=== PATIENT | male | born 1960 | race Caucasian/White ===

== ENCOUNTER 2023-02-07 21:35 | Observation (INO) | payer BC ==
[2023-02-07] MEDS ORDERED: SODIUM CHLORIDE 0.9% 500 ML 500 ML IV STA (22:45)
[2023-02-07] MEDS ORDERED: HYDROmorphone 1 MG/ML 1 ML SYRINGE IVP STA (22:45)
[2023-02-07] MEDS ORDERED: SODIUM CHLORIDE 0.9% 1,000 ML IV STA (22:45)
--- NOTE | 2023-02-07 23:00 | ED ---
Recheck HPI - General Chief Complaint: Back Pain/Injury Stated Complaint: Back Pain Time Seen by Provider: 02/07/23 21:39 Source: patient, RN notes reviewed, old records reviewed Mode of arrival: EMS Limitations: no limitations - History of Present Illness Initial Comments: This is a 62-year-old male DF for evaluation patient Dese for evaluation ER pain neck pain pain left shoulder pain pain down his left arm. Patient was in a different emergency department prior to arrival here with similar complaints of pain. The pain has been persistent and getting progressively worse. MD Complaint: other (Recheck for left shoulder left neck left arm pain) -: week(s) Returns Today for: persistent/worsening pain related to initial visit Symptoms Since Prior Visit: worsening pain Context: planned re-check Associated Symptoms: none Treatments Prior to Arrival: Given Pain Meds on - Related Data Allergies Allergy/AdvReac Type Severity Reaction Status Date / Time Penicillins Allergy Unknown Verified 02/07/23 21:38 Review of Systems ROS Statement: Those systems with pertinent positive or pertinent negative responses have been documented in the HPI. ROS Other: All systems not noted in ROS Statement are negative. Past Medical History Past Medical History: Musculoskeletal Disorder Additional Past Medical History / Comment(s): degenerative dic disease History of Any Multi-Drug Resistant Organisms: None Reported Past Surgical History: Back Surgery Additional Past Surgical History / Comment(s): Aortic Aneurysm Past Psychological History: No Psychological Hx Reported Smoking Status: Former smoker Past Alcohol Use History: Rare Past Drug Use History: Marijuana General Exam Limitations: no limitations General appearance: alert, in no apparent distress Head exam: Present: atraumatic, normocephalic, normal inspection Eye exam: Present: normal appearance, PERRL, EOMI. Absent: scleral icterus, conjunctival injection, periorbital swelling ENT exam: Present: normal exam, mucous membranes moist Neck exam: Present: normal inspection. Absent: tenderness, meningismus, lymphadenopathy Respiratory exam: Present: normal lung sounds bilaterally. Absent: respiratory distress, wheezes, rales, rhonchi, stridor Cardiovascular Exam: Present: regular rate, normal rhythm, normal heart sounds. Absent: systolic murmur, diastolic murmur, rubs, gallop, clicks GI/Abdominal exam: Present: soft, normal bowel sounds. Absent: distended, tenderness, guarding, rebound, rigid Extremities exam: Present: normal inspection, full ROM, normal capillary refill. Absent: tenderness, pedal edema, joint swelling, calf tenderness Back exam: Present: normal inspection Neurological exam: Present: alert, oriented X3, CN II-XII intact Psychiatric exam: Present: normal affect, normal mood Skin exam: Present: warm, dry, intact, normal color. Absent: rash Course Vital Signs 02/07/23 02/08/23 21:41 01:48 Temperature 97.8 F Pulse Rate 61 56 L Respiratory 22 16 Rate Blood Pressure 179/94 118/68 O2 Sat by Pulse 98 97 Oximetry - Reevaluation(s) Reevaluation #1: 02/08/23 02:21 Medical record is reviewed Reevaluation #2: 02/08/23 02:21 Patient's pain is intractable here in the ER with persistent nausea and vomiting Reevaluation #3: 02/08/23 02:21 Request is made from [facility] for patient's emergency department records Reevaluation #4: 02/08/23 02:22 Was pt. sent in by a medical professional or institution? @ -no Did you speak to anyone other than the patient for history? @ -no Did you review nursing and triage notes? @ -agree Were old charts reviewed? @ -yes Differential Diagnosis? @ -prior EKG interpreted by me (3pts min.)? @ -yes X-rays interpreted by me (1pt min.)? @ -yes CT interpreted by me (1pt min.)? @ -no U/S interpreted by me (1pt. min.)? @ -no What testing was considered but not performed? (CT, X-rays, U/S, labs)? Why? @ -no What meds were considered but not given? Why? @ -no Did you discuss the management of the patient with other professionals? @ -no Did you reconcile home meds? @ -no Was smoking cessation discussed for >3mins.? @ -no Was critical care preformed (if so, how long)? @ -no Were there social determinants of health that impacted care today? How? (Homelessness, low income, unemployed, alcoholism, drug addiction, trans portation, low edu. Level, literacy, decrease access to med. care, [facility], rehab)? @ -no Was there de-escalation of care discussed even if they declined? (Discuss DNR or withdrawal of care, Hospice)? @ -no What co-morbidities impacted this encounter? (DM, HTN, Smoking, COPD, CAD, Cancer, CVA, Hep., AIDS, mental health diagnosis, sleep apnea, morbid obesity)? @ -none Was patient admitted / discharged? @ - Undiagnosed new problem with uncertain prognosis? @ -no Drug Therapy requiring intensive monitoring for toxicity (Heparin, Nitro, Insulin, Cardizem)? @ -no Were any procedures done? @ -no Diagnosis/symptom? @ - Acute, or Chronic, or Acute on Chronic? @ -acute Uncomplicated (without systemic symptoms) or Complicated (systemic symptoms)? @ -complicated Side effects of treatment? @ -no Exacerbation, Progression, or Severe Exacerbation] @ -no Poses a threat to life or bodily function? @ -yes Medical Decision Making - Medical Decision Making 62 male to the emergency department for intractable paresthesia, cervical radiculopathy and left arm pain. Patient did have significant imaging done [facility] which is requested. Patient will be admitted for pain control and orthopedic evaluation - Lab Data Result diagrams: 02/07/23 22:52 02/07/23 22:52 Lab Results 02/07/23 02/07/23 Range/Units 22:52 22:52 WBC 11.8 H (3.8-10.6) k/uL RBC 4.81 (4.30-5.90) m/uL Hgb 14.6 (13.0-17.5) gm/dL Hct 43.7 (39.0-53.0) % MCV 90.8 (80.0-100.0) fL MCH 30.4 (25.0-35.0) pg MCHC 33.5 (31.0-37.0) g/dL RDW 12.9 (11.5-15.5) % Plt Count 232 (150-450) k/uL MPV 7.7 Neutrophils % 81 % Lymphocytes % 13 % Monocytes % 4 % Eosinophils % 1 % Basophils % 0 % Neutrophils # 9.6 H (1.3-7.7) k/uL Lymphocytes # 1.5 (1.0-4.8) k/uL Monocytes # 0.5 (0-1.0) k/uL Eosinophils # 0.1 (0-0.7) k/uL Basophils # 0.0 (0-0.2) k/uL Sodium 138 (137-145) mmol/L Potassium 3.9 (3.5-5.1) mmol/L Chloride 106 (98-107) mmol/L Carbon Dioxide 22 (22-30) mmol/L Anion Gap 10 mmol/L BUN 14 (9-20) mg/dL Creatinine 0.85 (0.66-1.25) mg/dL Est GFR (CKD-EPI)AfAm >90 (>60 ml/min/1.73 sqM) Est GFR (CKD-EPI)NonAf >90 (>60 ml/min/1.73 sqM) Glucose 132 H (74-99) mg/dL Calcium 9.6 (8.4-10.2) mg/dL Total Bilirubin 0.8 (0.2-1.3) mg/dL AST 30 (17-59) U/L ALT 23 (4-49) U/L Alkaline Phosphatase 74 (38-126) U/L C-Reactive Protein 1.1 H (<1.0) mg/dL Total Protein 7.2 (6.3-8.2) g/dL Albumin 4.6 (3.5-5.0) g/dL Lipase 47 (23-300) U/L Disposition Clinical Impression: Left arm pain, Neuropathy, Cervical radiculopathy Disposition: ADMITTED IP TO THIS HOSP Condition: Fair Is patient prescribed a controlled substance at d/c from ED?: No Time of Disposition: 01:00
[2023-02-07 23:02] LABS: Basophils % (A) 0 %; Eosinophils # (A) 0.1 k/uL (0-0.7); Eosinophils % (A) 1 %; HCT 43.7 % (39.0-53.0); HGB 14.6 gm/dL (13.0-17.5); Lymphocytes # (A) 1.5 k/uL (1.0-4.8); Lymphocytes % (A) 13 %; MCH 30.4 pg (25.0-35.0); MCHC 33.5 g/dL (31.0-37.0); MCV 90.8 fL (80.0-100.0); Mean Platelet Volume 7.7; Monocytes # (A) 0.5 k/uL (0-1.0); Monocytes % (A) 4 %; Neutrophils # (A) 9.6 k/uL (1.3-7.7); Neutrophils % (A) 81 %; Platelet Count 232 k/uL (150-450); RBC 4.81 m/uL (4.30-5.90); RDW 12.9 % (11.5-15.5); WBC 11.8 k/uL (3.8-10.6)
[2023-02-07 23:26] LABS: ALT 23 U/L (4-49); AST 30 U/L (17-59); African American GFR (CKD) >90 (>60 ml/min/1.73 sqM); Albumin 4.6 g/dL (3.5-5.0); Alkaline Phosphatase 74 U/L (38-126); Anion Gap 10 mmol/L; Blood Urea Nitrogen 14 mg/dL (9-20); C Reactive Protein 1.1 mg/dL (<1.0); Calcium 9.6 mg/dL (8.4-10.2); Carbon Dioxide 22 mmol/L (22-30); Chloride 106 mmol/L (98-107); Glucose 132 mg/dL (74-99); Lipase 47 U/L (23-300); Non-African American GFR(CKD) >90 (>60 ml/min/1.73 sqM); Potassium 3.9 mmol/L (3.5-5.1); Sodium 138 mmol/L (137-145); Total Bilirubin 0.8 mg/dL (0.2-1.3); Total Protein 7.2 g/dL (6.3-8.2)
[2023-02-08] MEDS ORDERED: ONDANSETRON 4 MG/2 ML VIAL IVP STA (00:57)
[2023-02-08] MEDS ORDERED: NALOXONE 0.4 MG/ML 1 ML VIAL IV PRN (01:10)
[2023-02-08] MEDS ORDERED: PROCHLORPERAZINE INJ 10 MG/2 ML VIAL IVP STA (01:24)
[2023-02-08] MEDS: SODIUM CHLORIDE 0.9% 1,000 ML IV SCH ×2 (01:37→15:34)
[2023-02-08] MEDS: HYDROmorphone 1 MG/ML 1 ML SYRINGE IVP PRN ×3 (07:25→22:05)
[2023-02-08 07:59] LABS: Appearance,Urine Clear (Clear); Bilirubin,Urine Negative (Negative); Blood,Urine Negative (Negative); Color,Urine Yellow; Glucose,Urine (UA) Trace (Negative); Ketones,Urine 2+ (Negative); Leukocyte Esterase,Urine Negative (Negative); Mucus,Urine Rare /hpf; Nitrite,Urine Negative (Negative); Protein,Urine 1+ (Negative); RBC,Urine 5 /hpf (0-5); Squamous Epithelial Cell,Urine <1 /hpf (0-4); Urobilinogen,Urine <2.0 mg/dL (<2.0); WBC,Urine 1 /hpf (0-5)
[2023-02-08 08:31] LABS: Specific Gravity,Urine >1.050 (1.001-1.035)
--- NOTE | 2023-02-08 10:51 | P.CNOR ---
History of Present Illness - [facility] Consult date: 02/08/23 History of present illness: This is a 62-year-old male who is admitted for left arm pain. Orthopedics is consulted for further evaluation. Patient is seen and evaluated at bedside today with Dr. Fermin Scott. Patient states that he has chronic pain in his neck that radiates down the left arm. Patient states that he went to [facility] emergency room on 02/07/2023 for the pain and received pain medication. Patient states that he was discharged home and presented to [facility] emergency room once the pain medicine wore off. Patient states that he has numbness and tingling in the left upper extremity. Patient states that he had a CT scan of his neck along with a Doppler ultrasound for the left upper extremity done at [facility] on 02/07/2023. Patient states that he has also been e valuated at an urgent care for this problem but never followed up with orthopedics as he was directed. Patient's past medical history is significant for degenerative disc disease and history of aortic aneurysm with open heart surgery. Patient denies any fever/chills, weakness, abdominal pain, shortness of breath or chest pain. Past Medical History Past Medical History: Musculoskeletal Disorder Additional Past Medical History / Comment(s): degenerative disc disease History of Any Multi-Drug Resistant Organisms: None Reported Past Surgical History: Appendectomy, Back Surgery Additional Past Surgical History / Comment(s): Aortic Aneurysm, disc in neck, open heart, ear surgery Past Anesthesia/Blood Transfusion Reactions: No Reported Reaction Past Psychological History: No Psychological Hx Reported Smoking Status: Former smoker Past Alcohol Use History: Rare Past Drug Use History: Marijuana Medications and Allergies Home Medications Medication Instructions Recorded Confirmed Type Albuterol Sulfate [Albuterol 2 puff PO RT-Q6H PRN 02/08/23 02/08/23 History Sulfate Hfa] Allergies Allergy/AdvReac Type Severity Reaction Status Date / Time Penicillins Allergy Unknown Verified 02/08/23 10:33 Physical Examination On exam patient is resting comfortably in bed in no acute distress. Patient is alert and oriented 3. Left upper extremity: Patient moves the left upper extremity freely and without pain or difficulty. Left upper extremity is warm and well perfused. Neur ovascular status and circulatory status are intact. There is no swelling, erythema or ecchymosis. Skin is intact. Patient has good range of motion of the head and neck without pain or difficulty. Results - Labs Labs: Abnormal Lab Results - Last 24 Hours (Table) 02/07/23 02/07/23 02/08/23 Range/Units 22:52 22:52 07: WBC 11.8 H (3.8-10.6) k/uL Neutrophils # 9.6 H (1.3-7.7) k/uL Glucose 132 H (74-99) mg/dL C-Reactive Protein 1.1 H (<1.0) mg/dL Ur Specific [place] >1.050 H (1.001-1.035) Urine Protein 1+ H (Negative) Urine Glucose (UA) Trace H (Negative) Urine Ketones 2+ H (Negative) Urine Mucus Rare H (None) /hpf H & H 02/07/23 Range/Units 22:52 Hgb 14.6 (13.0-17.5) gm/dL Hct 43.7 (39.0-53.0) % Result Diagrams: 02/07/23 22:52 02/07/23 22:52 Assessment and Plan (1) Left arm pain Current Visit: Yes Status: Acute Code(s): M79.602 - PAIN IN LEFT ARM SNOMED Code(s): 134299568 Plan: Patient reports that he had a CT scan of his neck along with a Doppler ultrasound of the left upper extremity done at [facility] on 02/07/2023. These records have not been transferred yet. Further recommendations pending transfer of imaging results from [facility].
[2023-02-08] MEDS: ONDANSETRON 4 MG/2 ML VIAL IVP PRN (12:07)
--- NOTE | 2023-02-08 13:51 | P.HPIM ---
History of Present Illness H&P Date: 02/08/23 History of present illness; patient is 62-year-old gentleman with no significant past medical history presented to the ER because of neck pain. Patient was seen at different hospital with similar complaints and has significant imaging done. Patient stated that this neck pain is gradually worsening, this is radiating down his left shoulder and his left arm. Patient also complaining of numbness of left upper extremity. Because of the symptoms, patient came to the ER. Patient was admitted to medicine service REVIEW OF SYSTEMS: CONSTITUTIONAL: No fever, no malaise, no fatigue. HEENT: No recent visual problems or hearing problems. Denied any sore throat. CARDIOVASCULAR: No chest pain, orthopnea, PND, no palpitations, no syncope. PULMONARY: No shortness of breath, no cough, no hemoptysis. GASTROINTESTINAL: No diarrhea, no nausea, no vomiting, no abdominal pain. NEUROLOGICAL: No headaches, no weakness, no numbness. HEMATOLOGICAL: Denies any bleeding or petechiae. GENITOURINARY: Denies any burning micturition, frequency, or urgency. MUSCULOSKELETAL/RHEUMATOLOGICAL: As mentioned in HPI ENDOCRINE: Denies any polyuria or polydipsia. The rest of the 14-point review of systems is negative. PHYSICAL EXAMINATION: GENERAL: The patient is alert and oriented x3, not in any acute distress. Well developed, well nourished. HEENT: Pupils are round and equally reacting to light. EOMI. No scleral icterus. No conjunctival pallor. Normocephalic, atraumatic. No pharyngeal erythema. No thyromegaly. CARDIOVASCULAR: S1 and S2 present. No murmurs, rubs, or gallops. PULMONARY: Chest is clear to auscultation, no wheezing or crackles. ABDOMEN: Soft, nontender, nondistended, normoactive bowel sounds. No palpable organomegaly. MUSCULOSKELETAL: No joint swelling or deformity. EXTREMITIES: No cyanosis, clubbing, or pedal edema. NEUROLOGICAL: Gross neurological examination did not reveal any focal deficits. SKIN: No rashes. Assessment and plan Neck pain Cervical Radiculopathy Monitor vital signs Monitor CBC Monitor CMP Ordered troponin Ordered EKG Ordered d-dimer Continue pain control Imaging requested from [facility] on board DVT prophylaxis: Past Medical History Past Medical History: Musculoskeletal Disorder Additional Past Medical History / Comment(s): degenerative disc disease History of Any Multi-Drug Resistant Organisms: None Reported Past Surgical History: Appendectomy, Back Surgery Additional Past Surgical History / Comment(s): Aortic Aneurysm, disc in neck, open heart, ear surgery Past Anesthesia/Blood Transfusion Reactions: No Reported Reaction Past Psychological History: No Psychological Hx Reported Smoking Status: Former smoker Past Alcohol Use History: Rare Past Drug Use History: Marijuana Medications and Allergies Home Medications Medication Instructions Recorded Confirmed Type Albuterol Sulfate [Albuterol 2 puff PO RT-Q6H PRN 02/08/23 02/08/23 History Sulfate Hfa] Allergies Allergy/AdvReac Type Severity Reaction Status Date / Time Penicillins Allergy Unknown Verified 02/08/23 10:33 Physical Exam Vitals: Vital Signs Temp Pulse Pulse Resp BP BP Pulse Ox 02/08/23 07:00 98.1 F 72 14 130/75 95 02/08/23 02:42 97.4 F L 63 18 131/76 93 L 02/08/23 01:48 56 L 16 118/68 97 02/07/23 21:41 97.8 F 61 22 179/94 98 Intake and Output 02/07/23 02/08/23 02/08/23 22:59 06:59 14:59 Other: Weight 78.925 kg 78.925 kg Results CBC & Chem 7: 02/07/23 22:52 02/07/23 22:52 Labs: Abnormal Lab Results - Last 24 Hours (Table) 02/07/23 02/07/23 02/08/23 Range/Units 22:52 22:52 07: WBC 11.8 H (3.8-10.6) k/uL Neutrophils # 9.6 H (1.3-7.7) k/uL Glucose 132 H (74-99) mg/dL C-Reactive Protein 1.1 H (<1.0) mg/dL Ur Specific [place] >1.050 H (1.001-1.035) Urine Protein 1+ H (Negative) Urine Glucose (UA) Trace H (Negative) Urine Ketones 2+ H (Negative) Urine Mucus Rare H (None) /hpf Thrombosis Risk Factor Assmnt - Choose All That Apply Any of the Below Risk Factors Present?: No Other Risk Factors: Yes Each Risk Factor Represents 2 Points: Age 61-74 years Other congenital or acquired thrombophilia - If yes, enter type in comment: No Thrombosis Risk Factor Assessment Total Risk Factor Score: 2 Thrombosis Risk Factor Assessment Level: Low Risk
[2023-02-08] MEDS: GABAPENTIN 100 MG CAP PO SCH ×2 (15:33→21:06)
[2023-02-08] MEDS: HYDROcodone/APAP 5-325MG 1 EACH TAB PO PRN (23:11)
[2023-02-09] MEDS: HYDROmorphone 1 MG/ML 1 ML SYRINGE IVP PRN ×2 (04:51→11:28)
[2023-02-09] MEDS: SODIUM CHLORIDE 0.9% 1,000 ML IV SCH (04:52)
[2023-02-09] MEDS: HYDROcodone/APAP 5-325MG 1 EACH TAB PO PRN ×3 (06:06→23:19)
[2023-02-09] MEDS: ONDANSETRON 4 MG/2 ML VIAL IVP PRN (08:08)
[2023-02-09] MEDS ORDERED: methylPREDNISolone SOD SUCCI 125 MG/2 ML VIAL IV STA (11:15)
[2023-02-09] MEDS: GABAPENTIN 100 MG CAP PO SCH ×3 (11:33→21:33)
--- NOTE | 2023-02-09 12:47 | P.PN ---
Subjective Progress Note Date: 02/09/23 This is a 62-year-old male who is admitted for left arm pain. Patient is seen and evaluated at bedside today. Patient states that he continues to have numbness and shooting pain down the left arm. Patient denies any weakness in the left upper extremity. Patient states that he had a cervical fusion in the 80s, but these curent symptoms started months ago. Patient states that he is unable to have MRIs due to metal in his ear. Patient denies any new complaints today. Objective - Vital Signs Vital signs: Vital Signs Temp 98.0 F 02/09/23 07:00 Pulse 50 L 02/09/23 08:00 Resp 15 02/09/23 08:00 BP 151/76 02/09/23 07:00 Pulse Ox 97 02/09/23 07:00 FiO2 Intake & Output 02/08/23 02/09/23 02/09/23 18:59 06:59 18:59 Intake Total 200 118 Balance 200 118 Intake: Oral 200 118 Other: Voiding Method Toilet Toilet # Voids 3 0 # Bowel Movements 1 - Exam On exam patient is resting comfortably in bed leaning on the left arm in no acute distress. Patient is alert and oriented 3. There is no swelling, erythema or ecchymosis over the neck or shoulder. Patient has full active range of motion of the left upper extremity with some discomfort. Sensation intact to the left upper extremity. There is some difference in sensation over the ulnar aspect of the left hand. Left upper extremity is warm and well perfused. Patient has full range of motion of the left wrist and hand. Neurovascular status and circulatory status are intact. - Labs CBC & Chem 7: 02/07/23 22:52 02/07/23 22:52 Assessment and Plan (1) Left arm pain Current Visit: Yes Status: Acute Code(s): M79.602 - PAIN IN LEFT ARM SNOMED Code(s): 058665784 (2) Cervical radiculopathy Current Visit: Yes Status: Acute Code(s): M54.12 - RADICULOPATHY, CERVICAL REGION SNOMED Code(s): 10863681 Plan: An ER note from [facility] is reviewed and contained CT report of the C- spine dated 01/09/2023 [facility] reveals fusion of the C5 6 vertebral bodies with ventral plate and screws along with grade 1 anterolisthesis of C7 on T1, degenerative disc disease noted at all levels. No significant evidence of significant disc bulge, herniation, central canal stenosis or neural foraminal narrowing. Patient will be started on Solu-Medrol for symptom control. Patient would possibly benefit from pain management. There is no surgical intervention planned. Patient may follow up as an outpatient.
[2023-02-09] MEDS ORDERED: HYDROmorphone 1 MG/ML 1 ML SYRINGE IVP PRN (13:29)
--- NOTE | 2023-02-09 13:29 | P.PN ---
Subjective Progress Note Date: 02/09/23 patient is 62-year-old gentleman with no significant past medical history presented to the ER because of neck pain. Patient was seen at different hospital with similar complaints and has significant imaging done. Patient stated that this neck pain is gradually worsening, this is radiating down his left shoulder and his left arm. Patient also complaining of numbness of left upper extremity. Because of the symptoms, patient came to the ER. Patient was admitted to medicine service 02/09. Patient seen and examined. States pain has slightly improved. Orthopedics has discussed with patient, they don't recommend any surgical intervention, recommending pain control. Patient not very happy with their suggestion, states he still in pain. REVIEW OF SYSTEMS: CONSTITUTIONAL: No fever, no malaise,. CARDIOVASCULAR: No chest pain, no palpitations, no syncope. PULMONARY: No shortness of breath, no cough, GASTROINTESTINAL: No diarrhea, no nausea, no vomiting, no abdominal pain. NEUROLOGICAL: No headaches, no weakness, PHYSICAL EXAMINATION: GENERAL: The patient is alert and oriented x3, not in any acute distress. Well developed, well nourished. HEENT: Pupils are round and equally reacting to light. EOMI. No scleral icterus. No conjunctival pallor. Normocephalic, atraumatic. No pharyngeal erythema. No thyromegaly. CARDIOVASCULAR: S1 and S2 present. No murmurs, rubs, or gallops. PULMONARY: Chest is clear to auscultation, no wheezing or crackles. ABDOMEN: Soft, nontender, nondistended, normoactive bowel sounds. No palpable organomegaly. MUSCULOSKELETAL: No joint swelling or deformity. EXTREMITIES: No cyanosis, clubbing, or pedal edema. NEUROLOGICAL: Gross neurological examination did not reveal any focal deficits. SKIN: No rashes. Assessment and plan Neck pain Cervical Radiculopathy Monitor vital signs Monitor CBC Monitor CMP Continue Neurontin Continue when necessary pain medications with IV Dilaudid and oral [facility] started IV steroids, recommend discharging on steroid taper [place] [facility] pain management DVT prophylaxis: Objective - Vital Signs Vital signs: Vital Signs Temp 98.0 F 02/09/23 07:00 Pulse 50 L 02/09/23 08:00 Resp 15 02/09/23 08:00 BP 151/76 02/09/23 07:00 Pulse Ox 97 02/09/23 07:00 FiO2 Intake & Output 02/08/23 02/09/23 02/09/23 18:59 06:59 18:59 Intake Total 200 118 Balance 200 118 Intake: Oral 200 118 Other: Voiding Method Toilet Toilet # Voids 3 0 # Bowel Movements 1 - Labs CBC & Chem 7: 02/07/23 22:52 02/07/23 22:52
[2023-02-09 15:00] VITALS: BMI 25.7
[2023-02-10] MEDS: HYDROcodone/APAP 5-325MG 1 EACH TAB PO PRN ×3 (08:23→22:11)
[2023-02-10] MEDS: methylPREDNISolone SOD SUCCI 125 MG/2 ML VIAL IV SCH (08:24)
[2023-02-10] MEDS: GABAPENTIN 100 MG CAP PO SCH (08:24)
--- NOTE | 2023-02-10 13:32 | P.PN ---
Subjective Progress Note Date: 02/10/23 patient is 62-year-old gentleman with no significant past medical history presented to the ER because of neck pain. Patient was seen at different hospital with similar complaints and has significant imaging done. Patient stated that this neck pain is gradually worsening, this is radiating down his left shoulder and his left arm. Patient also complaining of numbness of left upper extremity. Because of the symptoms, patient came to the ER. Patient was admitted to medicine service 02/09. Patient seen and examined. States pain has slightly improved. Orthopedics has discussed with patient, they don't recommend any surgical intervention, recommending pain control. Patient not very happy with their suggestion, states he still in pain. 02/10. Patient seen and examined. Patient still states that his pain is not controlled. Wants something can be changed weekly, explained to him that he needs to follow-up outpatient with pain management. REVIEW OF SYSTEMS: CONSTITUTIONAL: No fever, no malaise,. CARDIOVASCULAR: No chest pain, no palpitations, no syncope. PULMONARY: No shortness of breath, no cough, GASTROINTESTINAL: No diarrhea, no nausea, no vomiting, no abdominal pain. NEUROLOGICAL: No headaches, no weakness, PHYSICAL EXAMINATION: GENERAL: The patient is alert and oriented x3, not in any acute distress. Well developed, well nourished. HEENT: Pupils are round and equally reacting to light. EOMI. No scleral icterus. No conjunctival pallor. Normocephalic, atraumatic. No pharyngeal erythema. No thyromegaly. CARDIOVASCULAR: S1 and S2 present. No murmurs, rubs, or gallops. PULMONARY: Chest is clear to auscultation, no wheezing or crackles. ABDOMEN: Soft, nontender, nondistended, normoactive bowel sounds. No palpable organomegaly. MUSCULOSKELETAL: No joint swelling or deformity. EXTREMITIES: No cyanosis, clubbing, or pedal edema. NEUROLOGICAL: Gross neurological examination did not reveal any focal deficits. SKIN: No rashes. Assessment and plan Neck pain Cervical Radiculopathy Monitor vital signs Monitor CBC Monitor CMP Continue Neurontin, dose increased to 300 mg 3 times a day Continue when necessary pain medications with IV Dilaudid and oral [facility] started IV steroids, recommend discharging on steroid taper [employer] pain management DVT prophylaxis: Objective - Vital Signs Vital signs: Vital Signs Temp 98 F 02/10/23 07:00 Pulse 54 L 02/10/23 07:00 Resp 16 02/10/23 07:00 BP 144/72 02/10/23 07:00 Pulse Ox 97 02/10/23 07:00 FiO2 Intake & Output 02/09/23 02/10/23 02/10/23 18:59 06:59 18:59 Intake Total 536 150 Balance 536 150 Weight 78.925 kg Intake: Oral 536 150 Other: Voiding Method Toilet # Voids 3 2 # Bowel Movements 1 - Labs CBC & Chem 7: 02/07/23 22:52 02/07/23 22:52
[2023-02-10] MEDS: GABAPENTIN 300 MG CAP PO SCH ×2 (16:33→20:30)
[2023-02-11] MEDS: HYDROcodone/APAP 5-325MG 1 EACH TAB PO PRN ×3 (05:22→17:22)
[2023-02-11] MEDS: methylPREDNISolone SOD SUCCI 125 MG/2 ML VIAL IV SCH (08:02)
[2023-02-11] MEDS: GABAPENTIN 300 MG CAP PO SCH ×3 (08:02→21:12)
--- NOTE | 2023-02-11 15:17 | P.PN ---
Subjective Progress Note Date: 02/11/23 patient is 62-year-old gentleman with no significant past medical history presented to the ER because of neck pain. Patient was seen at different hospital with similar complaints and has significant imaging done. Patient stated that this neck pain is gradually worsening, this is radiating down his left shoulder and his left arm. Patient also complaining of numbness of left upper extremity. Because of the symptoms, patient came to the ER. Patient was admitted to medicine service 02/09. Patient seen and examined. States pain has slightly improved. Orthopedics has discussed with patient, they don't recommend any surgical intervention, recommending pain control. Patient not very happy with their suggestion, states he still in pain. 02/10. Patient seen and examined. Patient still states that his pain is not controlled. Wants something can be changed weekly, explained to him that he needs to follow-up outpatient with pain management. 02/11. Patient seen and examined. States his neck pain is still not under control. Pain management team is supposed to see this patient this afternoon. REVIEW OF SYSTEMS: CONSTITUTIONAL: No fever, no malaise,. CARDIOVASCULAR: No chest pain, no palpitations, no syncope. PULMONARY: No shortness of breath, no cough, GASTROINTESTINAL: No diarrhea, no nausea, no vomiting, no abdominal pain. NEUROLOGICAL: No headaches, no weakness, PHYSICAL EXAMINATION: GENERAL: The patient is alert and oriented x3, not in any acute distress. Well developed, well nourished. HEENT: Pupils are round and equally reacting to light. EOMI. No scleral icterus. No conjunctival pallor. Normocephalic, atraumatic. No pharyngeal erythema. No thyromegaly. CARDIOVASCULAR: S1 and S2 present. No murmurs, rubs, or gallops. PULMONARY: Chest is clear to auscultation, no wheezing or crackles. ABDOMEN: Soft, nontender, nondistended, normoactive bowel sounds. No palpable organomegaly. MUSCULOSKELETAL: No joint swelling or deformity. EXTREMITIES: No cyanosis, clubbing, or pedal edema. NEUROLOGICAL: Gross neurological examination did not reveal any focal deficits. SKIN: No rashes. Assessment and plan Neck pain Cervical Radiculopathy Monitor vital signs Monitor CBC Monitor CMP Continue Neurontin, 300 mg 3 times a day Continue when necessary pain medications with IV Dilaudid and oral [facility] started IV steroids, recommend discharging on steroid taper Consult pain management DVT prophylaxis: Objective - Vital Signs Vital signs: Vital Signs Temp 98.1 F 02/11/23 14:24 Pulse 65 02/11/23 14:24 Resp 15 02/11/23 14:24 BP 144/77 02/11/23 14:24 Pulse Ox 98 02/11/23 14:24 FiO2 Intake & Output 02/10/23 02/11/23 02/11/23 18:59 06:59 18:59 Intake Total 808 80 Balance 808 80 Intake: Oral 808 80 Other: Voiding Method Toilet # Voids 5 2 1 # Bowel Movements 1 - Labs CBC & Chem 7: 02/07/23 22:52 02/07/23 22:52
--- NOTE | 2023-02-11 16:02 | P.PAINPG ---
Objective - Vital Signs Vital signs: Vital Signs Temp 97.6 F 02/11/23 07:30 Pulse 61 02/11/23 07:30 Resp 17 02/11/23 07:30 BP 167/87 02/11/23 07:30 Pulse Ox 99 02/11/23 00:40 FiO2 Intake & Output 02/10/23 02/11/23 02/11/23 18:59 06:59 18:59 Intake Total 808 Balance 808 Intake: Oral 808 Other: Voiding Method Toilet # Voids 5 2 # Bowel Movements 1 - Labs CBC & Chem 7: 02/07/23 22:52 02/07/23 22:52 PQRS Measure Charge Sheet Comment: HISTORY OF PRESENT ILLNESS: 62 yr old inpatient male w at side as a referral from Dr Ceferino Jane presents today w severe and chronic neck pain secondary to DDD, spondylosis and facet arthropathy without myelopathy for evaluation. Pt states pain level is provoked at 9 /10 in intensity, constant, localized in the mid to lower cervical spine, sharp, achy in character w shooting pain towards the L shoulder. Pain is provoked by rotation, lifting, laying on his R side. Pain is alleviated by medications (IV Dilaudid, Oral Olmitz), repositioning and rest. Obtained records from [facility] which consisted of CT Angiograms of the cervical spine and chest. PMH: OA, Asthma PSH: AA, Open Heart Surgery, Ear Surgery, Appendectomy, Lumbar Surgery SH: Former tobacco user, No ETOH abuse, Cannabis use FH: Non contributory All: See list Meds: See list REVIEW OF ORGAN SYSTEMS: CONSTITUTIONAL: No fevers or chills. No recent weight loss. NEUROLOGICAL: + numbness and tingling along the distal extremities. No seizure disorders or headaches. MUSCULOSKELETAL: + pain PSYCHIATRIC: Denies current depression or suicidal t houghts. Physical Examinations : Constitutional : Cooperative , not in acute distress . Neurologic : Cranial nerve II to XII intact. No focal neurological deficits. Psychiatric : alert & oriented x 3. Matching mood & appropriate affect. Judgment & insight intact. Musculoskeletal : Cervical Spine Motor strength in the deltoid and biceps: Normal right side. Normal Left side Motor strength biceps and the wrist extensors: Normal right side . Normal left side Motor strength in the triceps muscle: Normal right side. Normal left side Deep tendon reflexes: Normal at the bi ceps. Normal at Brachioradialis. Normal at triceps Vertebral body tenderness to deep palpation over C6 Cervical facet loading test: positive bilaterally Spurling test: positive bilaterally over C6-C7- T1 Neck distraction test: positive bilaterally Cherri sign: positive bilaterally Lumbar spine Motor strength lower extremities ,thigh and legs 5/5 Right side , 5/5 Left side Deep tendon reflexes : Normal Knee Jerk. Normal Ankle Jerk Vertebral body tenderness over Paulino Test positive Lumbar facet Loading Test: positive Right / positive Left Range of motion of the lumbar spine Flexion 30 degrees, extension 10 degrees Straight Leg Raise test: Left/ Right positive at degree Larissa test: positive right / positive left. Severe tenderness over the Sacroiliac joint on the Right / Left sides Gaenslen test: positive bilaterally Seated flexion test: positive bilaterally. Sacral spine : Severe tenderness over the Sacroiliac joint: right side / left side Range of motion: Flexion of the lumbar spine <60 degrees Range of motion: Extension of the lumbar spine <20 degrees Gaenslen's Test positive Anup's Test positive Larissa test: positive right side / left side Thigh Thrust Test Sacral Thrust Test Imaging: CT Angiogram Cervical and Chest completed at [facility] from 02/07/[address] of the cervical spine provided. Assessment/ Plan : Cervical DDD Recommendation of follow up at the Pain Clinic. Pt will manage pain w Olmitz 7.5/325mg #18 NR upon discharge. Use, side effects, adverse reactions and safe storage discussed. All questions answered. I have spent greater than 30 minutes on patient care today. Dr Irizarry was available by phone for the evaluation of this patient. The time was used to review the medical records including relevant urine studies and Prescription history (MAPs), review of the available imaging, evaluation and examination of the patient, coordination of care with the medical staff and if applicable referring physicians, as well as creation of the medical record - Pain Location Left Arm Non-Pharmacological Interventions: Darkened Room, Environmental Control, Position/Reposition, Reduce Environmental Stimuli Pharmacological Interventions: Discuss Pain Med Options, PRN Medication Pain Comment: see MAR documentation PQRS Narrative: Blood Pressure [Left Arm] 167/87 Blood Pressure [Right Arm] 165/86 Blood Pressure 118/68 Pain Intensity [Left Arm] 6 Pain Intensity 4 Pain Scale Used Numeric (1 - 10) Scale Used Numeric (1 - 10) Home Medications: Ambulatory Orders Albuterol Sulfate [Albuterol Sulfate Hfa] 2 puff PO RT-Q6H PRN 02/08/23 Controlled Substance Measures - Controlled Substance Measures Is patient prescribed a controlled substance at discharge?: Yes When asked, does pt state using other controlled substances?: Yes If prescribed controlled substance>3 days was MAPS reviewed?: Prescribed <3 Days If Rx opioid, was Start Talking consent form obtained?: Yes Was information provided regarding opioid addiction?: Yes
--- NOTE | 2023-02-11 18:56 | CT ---
EXAMINATION TYPE: CT CervThoracic spine wo con DATE OF EXAM: 02/11/2023 COMPARISON: None HISTORY: Left arm numbness and pain. CT DLP: 1877.20 mGycm Automated exposure control for dose reduction was used. TECHNIQUE: Axial CT images of the cervicothoracic spine without intravenous contrast. Coronal and sag ittal reformatted images were also reviewed. FINDINGS: Fracture: None. Osseous structures: Postsurgical changes from anterior cervical fusion involving C5-C6. Hardware appe ars intact with appropriate alignment. This creates streak artifact which limits evaluation. Multilev el degenerative disc disease changes with endplate spurring and disc osteophyte complex's. Multilevel facet arthropathy. Midline sternal wires. Vertebral alignment: Within normal limits. Spinal canal/Neural Foramina: Broad-based disc bulge without significant effacement of anterior theca l sac at C2-C3 posterior disc ossify complex at C3-C4 with at least mild central canal stenosis. Post erior disc osteophyte complex at the C5-C6 with a least mild spinal canal stenosis. Posterior disc os teophyte complex at C6-C7 with at least mild spinal canal stenosis. Mild to moderate bilateral neural foraminal stenosis at C3-C4 and C4-C5. Neck soft tissues: Prevertebral soft tissues are within normal limits. Other: The airway is patent. Biapical pleural-parenchymal scarring with paraseptal emphysematous lynn ges. Posterior dependent atelectasis. Regions of bronchiectasis within the posterior aspect of the ri ght lower lobe. Additional regions of suspected honeycombing within the anterior aspects of both uppe r lobes. Left renal cyst measuring up to 2.5 cm. IMPRESSION: 1. NO ACUTE FRACTURE. 2. MILD TO MODERATE MULTILEVEL DEGENERATIVE DISC DISEASE WITH POSTSURGICAL CHANGES FROM ANTERIOR FUS ION OF C5-C6. 3. COPD CHANGES WITH SUGGESTED INTERSTITIAL LUNG DISEASE.
[2023-02-12] MEDS: HYDROcodone/APAP 5-325MG 1 EACH TAB PO PRN ×2 (01:45→08:12)
[2023-02-12 07:31] VITALS: RESP 16; TEMP 98
[2023-02-12] MEDS: methylPREDNISolone SOD SUCCI 125 MG/2 ML VIAL IV SCH (08:12)
[2023-02-12] MEDS: GABAPENTIN 300 MG CAP PO SCH (08:12)
[2023-02-12] MEDS ORDERED: HYDROcodone/APAP 10-325MG 1 EACH TAB PO PRN (13:09)
[2023-02-12] MEDS ORDERED: LACTATED RINGERS 1,000 ML IV SCH (13:30)
[2023-02-12] MEDS ORDERED: IOPAMIDOL-370 125ML BTL ONE (13:59)
[2023-02-12] MEDS ORDERED: DEXAMETHASONE SOD PHOSPHATE 10 MG/ML 1 ML VIAL ONE (13:59)
--- NOTE | 2023-02-12 14:13 | P.PCN ---
Date of Procedure: 02/12/23 Description of Procedure: Pre- and Post-operative Diagnosis: Cervical radiculopathy, radiating to left upper extremity Procedure: C7-T1 Inter-Laminar Cervical Epidural Steroid Injection under biplanar fluoroscopy Surgeon: Robbin Richards Anesthesia: Local: 1% Lidocaine, IV sedation : None Complications: None. Estimated blood loss: None Specimens removed: None Fluoroscopic image: saved to electronic medical records. Indications for Procedure: The patient has been suffering from neck pain and pain radiating to the left side upper extremity causing numbness tingling sensation over fourth and fifth fingers. Inadequate pain control with pharmacologic regimen. An inter-laminar approach cervical epidural steroid injection was scheduled for the patient. Procedure and Findings: The patient was seen and examined in the holding area. The written informed consent was obtained after explaining the risks, benefits, alternatives of the procedure to the patient. The patient was brought to the procedure room and was placed in the prone position on the operating table. A pillow was placed under the upper chest. Standard anesthesia monitoring was done through out the procedure. Timeout was completed. The skin preparation was done with ChloraPrep 1 and draping was done in usual sterile fashion. Sterile technique was observed throughout the procedure. Under fluoroscopic guidance, the C7-T1 inter-laminar space was identified. 3 ml of 1% Lidocaine was injected with a 25 gauge needle to achieve adequate local anesthesia of the skin and subcutaneous tissue. A 20 gauge, 3.5 inch Tuohy type epidural needle was placed and gradually advanced up to the epidural space using loss of resistance technique and fluoroscopic guidance. Lateral, oblique fluoroscopic views confirm the needle position. No paresthesia was noted. A negative aspiration was confirmed and then 1 ml of Isovue-200 was injected. A good dye spread was seen in the epidural space and it was negative for any intrathecal, intraneural or intravascular spread. A total of 6 ml solution containing 20 mg Dexamethasone, and 4 ml preservative-free Normal Saline was injected slowly with intermittent aspiration. The needle was removed intact, area was cleaned and bandage was applied. Disposition : The patient tolerated the procedure very well. The patient was transferred to the recovery room and remained stable until transferred to inpatient room. The patient was given detailed discharge instructions for bleeding, infection, increased pain at the injection site, and was advised to seek immediate medical attention should significant side effects develop. The patient will be followed up with our Pain Clinic within 2 weeks for follow-up visit.
--- NOTE | 2023-02-12 14:20 | FL ---
Intraoperative/procedural fluoroscopic services were provided for cervical epidural steroid injection . Total fluoroscopy time is 8.3 seconds with a total of 3 submitted images to PACS. Total DAP 0.76860 mGym2. Please see the operative note for further details.
[2023-02-12 15:27] VITALS: BP 175/93; PULSE 61
--- NOTE | 2023-02-16 09:40 | P.DS ---
Providers Date of admission: 02/08/23 01:10 Expected date of discharge: 02/12/23 Attending physician: Kam Jones Primary care physician: Clyde Serrano [facility] Course: Final diagnosis Neck pain Cervical Radiculopathy GI prophylaxis DVT prophylaxis Full code Discharge disposition Patient is being discharged in a stable condition with guarded prognosis to home. Patient will follow-up with Dr. Carpio in the outpatient setting upon discharge. Patient is to continue with pain management as scheduled. Total time taken is greater than 35 minutes. Hospital course This is a 62-year-old male who was recently admitted with severe upper back pain and neck pain being closely monitored for pain management. Patient was evaluated by pain management underwent cervical testing and had epidural injection. Patient was continued on IV steroids and evaluated by orthopedics with no plans for surgical intervention. Patient has been cleared by consultations and will follow-up outpatient as scheduled appointment on the . Please refer to other consultation notes for further HPI. Currently no reports of chest pain, shortness of breath, or palpitations. Patient is afebrile. No reports of nausea or vomiting and patient is tolerating diet. Patient will be discharged home today. Physical exam: Gen: This is a 62-year-old male who is awake, alert and oriented 3, thin built, well-developed HEENT: Head is atraumatic, normocephalic. Pupils equal, round. Sclerae is anicteric. NECK: Supple. No JVD. No lymphadenopathy. No thyromegaly. LUNGS: Clear to auscultation. No wheezes or rhonchi. No intercostal retractions. HEART: Regular rate and rhythm. No murmur. ABDOMEN: Soft. Bowel sounds are present. No masses. No tenderness. EXTREMITIES: No pedal edema. No calf tenderness. NEUROLOGICAL: Patient is awake, alert and oriented x3. Cranial nerves 2 through 12 are grossly intact. Please refer to medication reconciliation sheet for a list of medications. The impression and plan of care has been dictated by Toña Oropeza, Nurse Practitioner as directed. Dr. Guillermo MD I have performed a history and examination and MDM of this patient, discussed the same with the dictator, and agree with the dictator's assessment and plan as written ,documented as a scribe. Based on total visit time, I have performed more than 50% of the visit. Patient Condition at Discharge: Fair Plan - Discharge Summary Discharge Rx Participant: Yes New Discharge Prescriptions: New HYDROcodone/APAP 7.5-325MG [[place] 7.5-325] 1 tab PO Q4H PRN 3 Days #18 tab PRN Reason: Pain Gabapentin [Neurontin] 300 mg PO TID #9 cap Continue Albuterol Sulfate [Albuterol Sulfate Hfa] 2 puff PO RT-Q6H PRN PRN Reason: Shortness Of Breath Discharge Medication List Albuterol Sulfate [Albuterol Sulfate Hfa] 2 puff PO RT-Q6H PRN 02/08/23 [History] HYDROcodone/APAP 7.5-325MG [[place] 7.5-325] 1 tab PO Q4H PRN 3 Days #18 tab 02/11/23 [Rx] Gabapentin [Neurontin] 300 mg PO TID #9 cap 02/12/23 [Rx] Follow up Appointment(s)/Referral(s): Clyde Serrano DO [Primary Care Provider] - 1-2 days Agatha Irizarry MD [STAFF PHYSICIAN] - 1 Week Activity/Diet/Wound Care/Special Instructions: Activity Limited until follow-up Follow-up with primary care provider on discharge Follow-up with pain management in 1-2 weeks Continue taking medications as prescribed Discharge/Stand Alone Forms: Anes Pain/[place] Instructions Discharge Disposition: HOME SELF-CARE
== END 2023-02-12 17:04 | disposition home or self-care (01) ==
LOC: EC 21:35 → 6NMEDSUR 02-08 01:10
PROVIDERS: ADMIT Hospitalist; ATTEND Hospitalist
DX: M54.12 Radiculopathy, cervical region (principal); G89.29 Other chronic pain; R20.2 Paresthesia of skin; R11.2 Nausea with vomiting, unspecified; M19.90 Unspecified osteoarthritis, unspecified site; Z95.1 Presence of aortocoronary bypass graft; Z98.890 Other specified postprocedural states; Z87.891 Personal history of nicotine dependence; Z86.79 Personal history of other diseases of the circulatory system; Z79.899 Other long term (current) drug therapy; Z88.0 Allergy status to penicillin
CPT/HCPCS: 96376 ×2; 96361; 96375 ×3; 96374; 99285; 36415; 85379; 80053; 83690; 84484; 85025; 86140; 81001; 72128; 72125; 62321; G0378 ×5; J0780; J1100; J2930 ×4; J3360; J2405 ×2; J1170 ×3; Q9967